=== PATIENT | male | born 1940 | race Caucasian/White ===

== ENCOUNTER 2017-12-11 16:06 | Emergency (ER) | payer SELFPAY ==
[~2017-12-11] VITALS: Ht 170.2 cm; Wt 65.0 kg
[~2017-12-11 16:06] MED LIST: CEPH-569 PO
[2017-12-11 17:02] LABS: BASOPHILS % 0.2 % (0.0-2.0); EOSINOPHILS % 0.8 % (0.0-5.0); HEMATOCRIT. 36.1 % (42.0-52.0); HEMOGLOBIN. 12.4 g/dL (14.0-18.0); LYMPHOCYTES % 13.1 % (20.0-50.0); MEAN CORPUSCULAR VOLUME 99.1 fL (80.0-94.0); MEAN PLATELET VOLUME 8.8 fl (7.4-10.4); MONOCYTES % 8.7 % (2.0-8.0); NEUTROPHILS % 77.2 % (40.0-76.0); PLATELET 176 x1000/uL (130-400); RED BLOOD CELL COUNT 3.64 mill/uL (4.7-6.1); RED CELL DISTRIBUTION WIDTH 15.7 % (11.6-14.6)
[2017-12-11 17:05] LABS: CHLORIDE 107 mEq/L (98-107)
[2017-12-11 17:06] LABS: INR 1.2; PROTHROMBIN TIME 12.2 sec (9.4-11.6)
[2017-12-11] MEDS ORDERED: CEPHALEXIN 500MG CAPSULE PO ONE (21:30)
[2017-12-11 21:55] VITALS: BP 140/73
[2017-12-12 12:31] LABS: KETONES URINE 2+ (NEGATIVE); LEUKOCYTE ESTERASE URINE 3+ (NEGATIVE); NITRITE URINE POSITIVE (NEGATIVE); OCCULT BLOOD URINE 3+ (NEGATIVE); PH URINE 7.5 (4.5-8.0); PROTEIN URINE 4+ (NEGATIVE); SPECIFIC GRAVITY URINE 1.024 (1.005-1.030)
[2017-12-12 12:35] LABS: CLARITY URINE CLOUDY (CLEAR); COLOR URINE BLOODY (YELLOW)
== END 2017-12-11 22:32 | disposition home or self-care (01) ==
LOC: ER 16:42
DX: N30.01 Acute cystitis with hematuria (principal); K21.9 Gastro-esophageal reflux disease without esophagitis; E11.9 Type 2 diabetes mellitus without complications; I10 Essential (primary) hypertension; N40.0 Benign prostatic hyperplasia without lower urinary tract symptoms; N21.0 Calculus in bladder
CPT/HCPCS: 36415; 74176; 80053; 85025; 85610; 87077; 99285; A4315

== ENCOUNTER 2017-12-12 10:47 | Emergency (ER) | payer OTHER ==
[~2017-12-12] VITALS: Ht 172.7 cm; Wt 85.0 kg
[2017-12-12 14:46] VITALS: BP 150/66
== END 2017-12-12 14:51 | disposition home or self-care (01) ==
LOC: ER 10:47
DX: R31.9 Hematuria, unspecified (principal); I10 Essential (primary) hypertension; K21.9 Gastro-esophageal reflux disease without esophagitis; E11.9 Type 2 diabetes mellitus without complications; Z86.73 Personal history of transient ischemic attack (TIA), and cerebral infarction without residual deficits
CPT/HCPCS: 99283

== ENCOUNTER 2018-05-09 10:42 | Inpatient (IN) | payer MEDICARE, MEDICAID, OTHER ==
[~2018-05-09] VITALS: Ht 177.8 cm; Wt 75.3 kg
[2018-05-09] MEDS ORDERED: SODIUM CHLORIDE 0.9% 1,000 ML IV ONE (11:15)
[2018-05-09 12:12] LABS: HEMATOCRIT. 39.5 % (42.0-52.0); HEMOGLOBIN. 13.5 g/dL (14.0-18.0); MEAN CORPUSCULAR HEMOGLOBIN 34.3 pg (28.0-32.0); MEAN CORPUSCULAR VOLUME 100.3 fL (80.0-94.0); MEAN PLATELET VOLUME 8.5 fl (7.4-10.4); PLATELET 153 x1000/uL (130-400); RED BLOOD CELL COUNT 3.94 mill/uL (4.7-6.1); RED CELL DISTRIBUTION WIDTH 13.7 % (11.6-14.6)
[2018-05-09 12:18] LABS: CHLORIDE 107 mEq/L (98-107)
[2018-05-09 13:03] LABS: CLARITY URINE CLOUDY (CLEAR); COLOR URINE YELLOW (YELLOW); KETONES URINE NEGATIVE (NEGATIVE); LEUKOCYTE ESTERASE URINE 1+ (NEGATIVE); NITRITE URINE NEGATIVE (NEGATIVE); OCCULT BLOOD URINE 1+ (NEGATIVE); PROTEIN URINE 1+ (NEGATIVE); SPECIFIC GRAVITY URINE 1.019 (1.005-1.030); UROBILINOGEN URINE 0.2 E.U./dL (0.2-1.0)
[2018-05-09 13:06] LABS: ATYPICAL LYMPHOCYTES 1; PLATELET ESTIMATE NORMAL
[2018-05-09] MEDS ORDERED: CEFTRIAXONE 1 G PREMIX 50 ML IV ONE (14:15)
[2018-05-09] MEDS ORDERED: DOCUSATE SODIUM 100MG CAPSULE PO PRN (16:00)
[2018-05-09] MEDS ORDERED: MAGNESIUM/ALUMINUM HYDROXIDE/SIMETHICONE 30ML UDC PO PRN (16:00)
[2018-05-09] MEDS ORDERED: ACETAMINOPHEN 325MG TABLET PO PRN (16:00)
[2018-05-09] MEDS ORDERED: LORAZEPAM 2MG/ML CPJ IV PRN (16:00)
[2018-05-09] MEDS ORDERED: HYDROCODONE/ACETAMINOPHEN 5/325MG TABLET PO PRN (16:00)
[2018-05-09] MEDS ORDERED: CLONIDINE 0.1MG TABLET PO PRN (16:00)
[2018-05-09] MEDS ORDERED: GUAIFENESIN 200MG/10ML SUGAR FREE UDC PO PRN (16:00)
[2018-05-09] MEDS ORDERED: ONDANSETRON HCL 4MG/2ML INJ IV PRN (16:00)
[2018-05-09 16:50] VITALS: BP 189/89
[2018-05-09] MEDS ORDERED: ENOXAPARIN 40MG/0.4ML SYR SUBCUT SCH (17:30)
[2018-05-09] MEDS ORDERED: LEVOFLOXACIN 500MG PREMIX 100 ML IV SCH (18:30)
[2018-05-09 19:34] VITALS: BP 170/90
[2018-05-09 20:00] VITALS: BP 170/90
[2018-05-09] MEDS ORDERED: DEXTROSE 50% WATER 50ML SYRINGE IV PRN (22:00)
[2018-05-09] MEDS: SODIUM CHLORIDE 0.45% 1,000 ML IV SCH (22:06)
[2018-05-09 23:41] VITALS: BP 154/79
[2018-05-10] MEDS ORDERED: FLUO-123 PO (03:25)
[2018-05-10] MEDS ORDERED: DOCU-138 PO (03:31)
[2018-05-10] MEDS ORDERED: CRAN450T10 PO (03:31)
[2018-05-10] MEDS ORDERED: CLON0.1T PO (03:31)
[2018-05-10] MEDS ORDERED: INSLIS SUBCUT (03:31)
[2018-05-10] MEDS ORDERED: ASCO-339 PO (03:31)
[2018-05-10] MEDS ORDERED: ACET-2178 PO (03:31)
[2018-05-10] MEDS ORDERED: MULT-230 PO (03:31)
[2018-05-10] MEDS ORDERED: IPRA3AMP9 NEB (03:35)
[2018-05-10] MEDS ORDERED: ONDA4TAB11 PO (03:35)
[2018-05-10] MEDS ORDERED: HYDR-4001 PO (03:35)
[2018-05-10 04:11] VITALS: BP 139/79
[2018-05-10] MEDS: SODIUM CHLORIDE 0.45% 1,000 ML IV SCH ×2 (05:45→17:45)
[2018-05-10] MEDS: BLOOD SUGAR DIAGNOSTIC STRIP TEST SCH ×4 (06:42→20:22)
[2018-05-10] MEDS: INSULIN LISPRO 100 UNITS/ML SUBCUT SCH ×4 (07:50→20:23)
[2018-05-10 08:00] VITALS: BP 139/74
[2018-05-10] MEDS: AMLODIPINE 10MG TABLET PO SCH (09:53)
[2018-05-10 11:26] LABS: BASOPHILS % 0.5 % (0.0-2.0); HEMATOCRIT. 38.1 % (42.0-52.0); HEMOGLOBIN. 13.4 g/dL (14.0-18.0); LYMPHOCYTES % 21.5 % (20.0-50.0); MEAN CORPUSCULAR HEMOGLOBIN 34.9 pg (28.0-32.0); MEAN CORPUSCULAR VOLUME 99.1 fL (80.0-94.0); MEAN PLATELET VOLUME 8.2 fl (7.4-10.4); MONOCYTES % 7.9 % (2.0-8.0); NEUTROPHILS % 66.1 % (40.0-76.0); PLATELET 157 x1000/uL (130-400); RED BLOOD CELL COUNT 3.84 mill/uL (4.7-6.1); RED CELL DISTRIBUTION WIDTH 13.2 % (11.6-14.6)
[2018-05-10] MEDS: APIXABAN 5 MG TABLET PO SCH ×2 (11:37→17:45)
[2018-05-10 12:00] VITALS: BP 124/76
[2018-05-10 12:13] LABS: CHLORIDE 107 mEq/L (98-107)
[2018-05-10 16:00] VITALS: BP 155/78
[2018-05-10 19:33] VITALS: BP 142/83
[2018-05-10] MEDS: LEVOFLOXACIN 500MG PREMIX 100 ML IV SCH (20:21)
[2018-05-11] VITALS (8 sets, daily range): BP systolic 115–164; BP diastolic 62–69
[2018-05-11] MEDS: BLOOD SUGAR DIAGNOSTIC STRIP TEST SCH ×4 (06:38→20:15)
[2018-05-11] MEDS: INSULIN LISPRO 100 UNITS/ML SUBCUT SCH ×4 (07:22→20:15)
[2018-05-11] MEDS: AMLODIPINE 10MG TABLET PO SCH (08:52)
[2018-05-11] MEDS: APIXABAN 5 MG TABLET PO SCH ×2 (08:52→17:42)
[2018-05-11] MEDS: SODIUM CHLORIDE 0.45% 1,000 ML IV SCH ×2 (08:57→20:16)
[2018-05-11] MEDS: LEVOFLOXACIN 500MG PREMIX 100 ML IV SCH (20:14)
[2018-05-12] VITALS: BP 135/74
[2018-05-12 04:00] VITALS: BP 130/76
[2018-05-12] MEDS: BLOOD SUGAR DIAGNOSTIC STRIP TEST SCH ×2 (07:16→12:22)
[2018-05-12] MEDS: INSULIN LISPRO 100 UNITS/ML SUBCUT SCH ×2 (07:50→12:22)
[2018-05-12] MEDS: APIXABAN 5 MG TABLET PO SCH (09:08)
[2018-05-12] MEDS: AMLODIPINE 10MG TABLET PO SCH (09:08)
[2018-05-12] MEDS: SODIUM CHLORIDE 0.45% 1,000 ML IV SCH (10:39)
[2018-05-12 12:00] VITALS: BP 141/75
[2018-05-12 16:00] VITALS: BP 157/83
[2018-05-12 20:00] VITALS: BP 145/76
[2018-05-12] MEDS ORDERED: LEVOFLOXACIN 500MG TABLET PO SCH (20:00)
== END 2018-05-12 19:48 | DRG 690 ==
LOC: ER 10:42 → 6WST 12:53 → EDBEDREQ 12:58 → EDBEDREQTM 12:58 → ENRESERV 15:51 → SUPCPDRO 15:56 → CANBEDREQ 16:40
PROVIDERS: ADMIT Hospitalist; ATTEND Hospitalist
DX: N39.0 Urinary tract infection, site not specified (principal); E11.9 Type 2 diabetes mellitus without complications; F03.90 Unspecified dementia, unspecified severity, without behavioral disturbance, psychotic disturbance, mood disturbance, and anxiety; J44.9 Chronic obstructive pulmonary disease, unspecified; R62.7 Adult failure to thrive; I10 Essential (primary) hypertension; Z82.49 Family history of ischemic heart disease and other diseases of the circulatory system; Z86.718 Personal history of other venous thrombosis and embolism; Z86.73 Personal history of transient ischemic attack (TIA), and cerebral infarction without residual deficits; Z79.899 Other long term (current) drug therapy
CPT/HCPCS: 36415; 71045; 82962; 83605; 83735; 84443; 84484; 93005; 93970; 96361; 96365; 99285; C1893; J0696; J1650; J1956; J7030

== ENCOUNTER → 2018-07-11 | Outpatient (CLI) | payer MEDICARE, OTHER, MEDICAID ==
[~2018-07-11] MED LIST changes: +ACET-2178 PO; +ASCO-339 PO; +CLON0.1T PO; +CRAN450T10 PO; +DOCU-138 PO; +FLUO-123 PO; +HYDR-4001 PO; +INSLIS SUBCUT; +IOHEXOL-300 100 ML BOTTLE ONE; +IPRA3AMP9 NEB; +MULT-230 PO; +ONDA4TAB11 PO
== END | disposition home or self-care (01) ==
LOC: CT 08:47
PROVIDERS: ATTEND Urology
DX: N32.89 Other specified disorders of bladder (principal); N21.0 Calculus in bladder; N40.1 Benign prostatic hyperplasia with lower urinary tract symptoms; M41.86 Other forms of scoliosis, lumbar region; M48.56XD Collapsed vertebra, not elsewhere classified, lumbar region, subsequent encounter for fracture with routine healing; I71.4 Abdominal aortic aneurysm, without rupture; K80.20 Calculus of gallbladder without cholecystitis without obstruction; I10 Essential (primary) hypertension; R26.2 Difficulty in walking, not elsewhere classified; R13.12 Dysphagia, oropharyngeal phase; R41.81 Age-related cognitive decline; R41.840 Attention and concentration deficit; R27.9 Unspecified lack of coordination; I67.9 Cerebrovascular disease, unspecified; Z86.718 Personal history of other venous thrombosis and embolism
CPT/HCPCS: 74178; Q9967

== ENCOUNTER 2018-08-16 13:22 | Inpatient (IN) | payer MEDICARE, MEDICAID, OTHER ==
[~2018-08-16] VITALS: Ht 177.8 cm; Wt 122.9 kg
[~2018-08-16 13:22] MED LIST changes: -IOHEXOL-300 100 ML BOTTLE ONE
[2018-08-16] MEDS ORDERED: MORPHINE SULFATE 4 MG/ML CPJ (NOT FOR IM USE) IV STA (13:58)
[2018-08-16] MEDS ORDERED: SODIUM CHLORIDE 0.9% 1,000 ML IV ONE (13:58)
[2018-08-16] MEDS ORDERED: ONDANSETRON HCL 4MG/2ML INJ IV STA (13:58)
[2018-08-16] MEDS ORDERED: LEVOFLOXACIN 750MG PREMIX 150 ML IV ONE (14:00)
[2018-08-16 14:41] LABS: CLARITY URINE CLEAR (CLEAR); COLOR URINE YELLOW (YELLOW); KETONES URINE NEGATIVE (NEGATIVE); LEUKOCYTE ESTERASE URINE 1+ (NEGATIVE); NITRITE URINE NEGATIVE (NEGATIVE); OCCULT BLOOD URINE 2+ (NEGATIVE); PROTEIN URINE NEGATIVE (NEGATIVE); SPECIFIC GRAVITY URINE 1.001 (1.005-1.030); UROBILINOGEN URINE 0.2 E.U./dL (0.2-1.0)
[2018-08-16 15:39] LABS: BASOPHILS % 0.2 % (0.0-2.0); HEMOGLOBIN. 14.4 g/dL (14.0-18.0); LYMPHOCYTES % 11.3 % (20.0-50.0); MEAN CORPUSCULAR HEMOGLOBIN 34.1 pg (28.0-32.0); MEAN CORPUSCULAR VOLUME 99.2 fL (80.0-94.0); MEAN PLATELET VOLUME 7.7 fl (7.4-10.4); MONOCYTES % 5.7 % (2.0-8.0); NEUTROPHILS % 80.8 % (40.0-76.0); PLATELET 233 x1000/uL (130-400); RED BLOOD CELL COUNT 4.24 mill/uL (4.7-6.1); RED CELL DISTRIBUTION WIDTH 13.7 % (11.6-14.6)
[2018-08-16 15:40] LABS: CHLORIDE 103 mEq/L (98-107)
[2018-08-16] MEDS ORDERED: DOCUSATE SODIUM 100MG CAPSULE PO PRN (17:45)
[2018-08-16] MEDS ORDERED: HYDROCODONE/ACETAMINOPHEN 5/325MG TABLET PO PRN (17:45)
[2018-08-16] MEDS ORDERED: GUAIFENESIN 200MG/10ML SUGAR FREE UDC PO PRN (20:00)
[2018-08-16] MEDS ORDERED: IPRATROPIUM/ALBUTEROL 0.5-3(2.5)MG/3ML NEB INH PRN (20:00)
[2018-08-16] MEDS ORDERED: ACETAMINOPHEN 325MG TABLET PO PRN (20:00)
[2018-08-16] MEDS ORDERED: ONDANSETRON HCL 4MG/2ML INJ IV PRN (20:00)
[2018-08-16] MEDS ORDERED: LORAZEPAM 2MG/ML CPJ IV PRN (20:00)
[2018-08-16 21:02] VITALS: BP 122/61
[2018-08-16 22:00] VITALS: BP 122/61
[2018-08-16] MEDS ORDERED: APIX5TAB PO (22:15)
[2018-08-16] MEDS ORDERED: AMLO10TA4 PO (22:16)
[2018-08-16] MEDS: SODIUM CHLORIDE 0.45% 1,000 ML IV SCH (23:47)
[2018-08-17] VITALS: BP 117/61
[2018-08-17 04:00] VITALS: BP 126/58
[2018-08-17] MEDS ORDERED: DEXTROSE 50% WATER 50ML SYRINGE IV PRN (06:30)
[2018-08-17 07:12] LABS: CHLORIDE 106 mEq/L (98-107)
[2018-08-17] MEDS: INSULIN LISPRO 100 UNITS/ML SUBCUT SCH ×4 (07:15→20:50)
[2018-08-17 07:23] LABS: BASOPHILS % 0.3 % (0.0-2.0); EOSINOPHILS % 3.7 % (0.0-5.0); HEMATOCRIT. 36.6 % (42.0-52.0); HEMOGLOBIN. 12.6 g/dL (14.0-18.0); LYMPHOCYTES % 14.5 % (20.0-50.0); MEAN CORPUSCULAR HEMOGLOBIN 34.2 pg (28.0-32.0); MEAN CORPUSCULAR VOLUME 99.5 fL (80.0-94.0); MEAN PLATELET VOLUME 7.7 fl (7.4-10.4); MONOCYTES % 10.7 % (2.0-8.0); NEUTROPHILS % 70.8 % (40.0-76.0); PLATELET 204 x1000/uL (130-400); RED BLOOD CELL COUNT 3.68 mill/uL (4.7-6.1); RED CELL DISTRIBUTION WIDTH 13.8 % (11.6-14.6)
[2018-08-17 07:30] LABS: LDL CHOLESTEROL 132 mg/dL (5-100)
[2018-08-17 07:31] LABS: HDL CHOLESTEROL 31 mg/dL (40-59)
[2018-08-17] MEDS: BLOOD SUGAR DIAGNOSTIC STRIP TEST SCH ×4 (07:38→20:50)
[2018-08-17 12:00] VITALS: BP 147/62
[2018-08-17] MEDS: LEVOFLOXACIN 500MG PREMIX 100 ML IV SCH (15:49)
[2018-08-17 16:00] VITALS: BP 165/63
[2018-08-17] MEDS: SODIUM CHLORIDE 0.45% 1,000 ML IV SCH (17:09)
[2018-08-17 20:00] VITALS: BP 152/65
[2018-08-18] VITALS (7 sets, daily range): BP systolic 134–176; BP diastolic 66–82
[2018-08-18] MEDS: SODIUM CHLORIDE 0.45% 1,000 ML IV SCH ×2 (04:55→15:24)
[2018-08-18] MEDS: INSULIN LISPRO 100 UNITS/ML SUBCUT SCH ×4 (06:23→20:30)
[2018-08-18] MEDS: BLOOD SUGAR DIAGNOSTIC STRIP TEST SCH ×4 (06:23→20:30)
[2018-08-18 07:36] LABS: BASOPHILS % 0.4 % (0.0-2.0); EOSINOPHILS % 3.4 % (0.0-5.0); LYMPHOCYTES % 17.6 % (20.0-50.0); MEAN CORPUSCULAR HEMOGLOBIN 33.8 pg (28.0-32.0); MEAN CORPUSCULAR VOLUME 99.1 fL (80.0-94.0); MEAN PLATELET VOLUME 7.7 fl (7.4-10.4); MONOCYTES % 12.8 % (2.0-8.0); NEUTROPHILS % 65.8 % (40.0-76.0); PLATELET 187 x1000/uL (130-400); RED BLOOD CELL COUNT 3.83 mill/uL (4.7-6.1); RED CELL DISTRIBUTION WIDTH 13.6 % (11.6-14.6)
[2018-08-18 08:01] LABS: CHLORIDE 107 mEq/L (98-107)
[2018-08-18] MEDS: LEVOFLOXACIN 500MG PREMIX 100 ML IV SCH (15:24)
[2018-08-19] VITALS: BP 160/79
[2018-08-19 04:00] VITALS: BP 143/69
[2018-08-19] MEDS: SODIUM CHLORIDE 0.45% 1,000 ML IV SCH (05:53)
[2018-08-19] MEDS: BLOOD SUGAR DIAGNOSTIC STRIP TEST SCH ×4 (06:02→21:00)
[2018-08-19] MEDS: INSULIN LISPRO 100 UNITS/ML SUBCUT SCH ×4 (06:15→21:00)
[2018-08-19 07:58] LABS: BASOPHILS % 0.3 % (0.0-2.0); EOSINOPHILS % 2.9 % (0.0-5.0); HEMATOCRIT. 38.4 % (42.0-52.0); LYMPHOCYTES % 19.4 % (20.0-50.0); MEAN CORPUSCULAR HEMOGLOBIN 33.7 pg (28.0-32.0); MEAN CORPUSCULAR VOLUME 99.3 fL (80.0-94.0); MEAN PLATELET VOLUME 7.8 fl (7.4-10.4); MONOCYTES % 11.2 % (2.0-8.0); NEUTROPHILS % 66.2 % (40.0-76.0); PLATELET 194 x1000/uL (130-400); RED BLOOD CELL COUNT 3.86 mill/uL (4.7-6.1); RED CELL DISTRIBUTION WIDTH 13.7 % (11.6-14.6)
[2018-08-19 08:00] VITALS: BP 120/77
[2018-08-19 09:00] LABS: CHLORIDE 108 mEq/L (98-107)
[2018-08-19 12:00] VITALS: BP 146/71
[2018-08-19] MEDS ORDERED: GENTAMICIN SULFATE 160 MG in SODIUM CHLORIDE 0.9% 100 ML IV SCH (14:00)
[2018-08-19 16:00] VITALS: BP 142/80
[2018-08-19 20:00] VITALS: BP 141/81
[2018-08-20] VITALS: BP 140/66
[2018-08-20 04:00] VITALS: BP_SYST 132; BP_SYST 143; BP_DIAS 62; BP_DIAS 86
[2018-08-20] MEDS: INSULIN LISPRO 100 UNITS/ML SUBCUT SCH ×2 (06:12→11:59)
[2018-08-20] MEDS: BLOOD SUGAR DIAGNOSTIC STRIP TEST SCH ×2 (06:12→11:59)
[2018-08-20 07:07] LABS: CHLORIDE 107 mEq/L (98-107)
[2018-08-20 07:08] LABS: BASOPHILS % 0.3 % (0.0-2.0); EOSINOPHILS % 2.9 % (0.0-5.0); HEMATOCRIT. 37.5 % (42.0-52.0); LYMPHOCYTES % 18.9 % (20.0-50.0); MEAN CORPUSCULAR HEMOGLOBIN 34.3 pg (28.0-32.0); MEAN CORPUSCULAR VOLUME 98.5 fL (80.0-94.0); MEAN PLATELET VOLUME 7.8 fl (7.4-10.4); NEUTROPHILS % 69.9 % (40.0-76.0); PLATELET 208 x1000/uL (130-400); RED BLOOD CELL COUNT 3.81 mill/uL (4.7-6.1); RED CELL DISTRIBUTION WIDTH 13.8 % (11.6-14.6)
[2018-08-20 08:00] VITALS: BP 150/74
[2018-08-20] MEDS ORDERED: GENTAMICIN 80MG PREMIX 100 ML IV SCH (10:00)
[2018-08-20 12:00] VITALS: BP 160/78
[2018-08-20] MEDS ORDERED: GENTAMICIN 120MG PREMIX 100 ML IV SCH (14:00)
[2018-08-20 16:00] VITALS: BP 146/93
[2018-08-20] MEDS ORDERED: ATORVASTATIN CALCIUM 20MG TABLET PO SCH (21:00)
== END 2018-08-20 18:10 | DRG 690 ==
LOC: ER 13:22 → 5WST 15:34 → EDBEDREQ 15:37 → ENRESERV 18:07 → EDBEDREQ 20:39
PROVIDERS: ADMIT Hospitalist; ATTEND Hospitalist
PROC: 02HV33Z Insertion of Infusion Device into Superior Vena Cava, Percutaneous Approach (ICD-10-PCS; principal; 2018-08-20)
PROC: B518ZZA Fluoroscopy of Superior Vena Cava, Guidance (ICD-10-PCS; 2018-08-20)
PROC: B548ZZA Ultrasonography of Superior Vena Cava, Guidance (ICD-10-PCS; 2018-08-20)
DX: N30.91 Cystitis, unspecified with hematuria (principal); J44.9 Chronic obstructive pulmonary disease, unspecified; I10 Essential (primary) hypertension; N20.0 Calculus of kidney; D64.9 Anemia, unspecified; F03.90 Unspecified dementia, unspecified severity, without behavioral disturbance, psychotic disturbance, mood disturbance, and anxiety; Z16.12 Extended spectrum beta lactamase (ESBL) resistance; B96.20 Unspecified Escherichia coli [E. coli] as the cause of diseases classified elsewhere; E11.9 Type 2 diabetes mellitus without complications; Z87.440 Personal history of urinary (tract) infections; Z87.442 Personal history of urinary calculi; Z86.718 Personal history of other venous thrombosis and embolism
CPT/HCPCS: 36415; 36569; 71045; 74176; 76937; 77001; 80061; 82962; 83605; 87077; 87186; 93005; 93970; 96365; 96366; 96375; 99285; C1725; J1580; J1956; J2270; J2405; J7030; J7050

== ENCOUNTER 2018-10-03 11:43 | Inpatient (IN) | payer MEDICARE, MEDICAID, OTHER ==
[~2018-10-03] VITALS: Ht 177.8 cm; Wt 79.8 kg
[~2018-10-03 11:43] MED LIST changes: +AMLO10TA4 PO; +APIX5TAB PO; -ASCO-339 PO; -CEPH-569 PO; -CRAN450T10 PO; -DOCU-138 PO; -FLUO-123 PO; -HYDR-4001 PO; -INSLIS SUBCUT; -IPRA3AMP9 NEB; -MULT-230 PO; -ONDA4TAB11 PO
[2018-10-03] MEDS ORDERED: MORPHINE SULFATE 4 MG/ML CPJ (NOT FOR IM USE) IV STA (12:24)
[2018-10-03] MEDS ORDERED: ONDANSETRON HCL 4MG/2ML INJ IV STA (12:24)
[2018-10-03] MEDS ORDERED: SODIUM CHLORIDE 0.9% 1,000 ML IV ONE ×2 (12:24→15:01)
[2018-10-03 12:58] LABS: BASOPHILS % 0.2 % (0.0-2.0); EOSINOPHILS % 0.7 % (0.0-5.0); HEMATOCRIT. 38.3 % (42.0-52.0); HEMOGLOBIN. 13.1 g/dL (14.0-18.0); MEAN CORPUSCULAR VOLUME 99.5 fL (80.0-94.0); MEAN PLATELET VOLUME 7.9 fl (7.4-10.4); MONOCYTES % 7.9 % (2.0-8.0); NEUTROPHILS % 83.2 % (40.0-76.0); PLATELET 194 x1000/uL (130-400); RED BLOOD CELL COUNT 3.85 mill/uL (4.7-6.1); RED CELL DISTRIBUTION WIDTH 14.7 % (11.6-14.6)
[2018-10-03 13:05] LABS: CHLORIDE 104 mEq/L (98-107)
[2018-10-03 13:07] LABS: INR 1.1; PARTIAL THROMBOPLASTIN TIME 37.2 sec (23.4-31.0); PROTHROMBIN TIME 11.1 sec (9.1-11.1)
[2018-10-03] MEDS ORDERED: CEFTRIAXONE 1 G PREMIX 50 ML IV ONE (14:30)
[2018-10-03 14:39] LABS: KETONES URINE NEGATIVE (NEGATIVE); LEUKOCYTE ESTERASE URINE NEGATIVE (NEGATIVE); NITRITE URINE NEGATIVE (NEGATIVE); OCCULT BLOOD URINE 3+ (NEGATIVE); PROTEIN URINE NEGATIVE (NEGATIVE); SPECIFIC GRAVITY URINE 1.012 (1.005-1.030); UROBILINOGEN URINE 0.2 E.U./dL (0.2-1.0)
[2018-10-03 14:44] LABS: CLARITY URINE CLOUDY (CLEAR); COLOR URINE BLOODY (YELLOW)
[2018-10-03] MEDS ORDERED: ONDANSETRON HCL 4MG/2ML INJ IV PRN (15:30)
[2018-10-03] MEDS ORDERED: CLONIDINE 0.1MG TABLET PO PRN (15:30)
[2018-10-03] MEDS ORDERED: DOCUSATE SODIUM 100MG CAPSULE PO PRN (15:30)
[2018-10-03] MEDS ORDERED: CEFTRIAXONE 1 G PREMIX 50 ML IV SCH (15:30)
[2018-10-03] MEDS ORDERED: ACETAMINOPHEN 325MG TABLET PO PRN (15:30)
[2018-10-03 23:10] VITALS: BP 111/56
[2018-10-03 23:46] VITALS: BP 108/51
[2018-10-04] MEDS: SODIUM CHLORIDE 0.45% 1,000 ML IV SCH ×2 (03:00→22:17)
[2018-10-04 04:00] VITALS: BP 121/72
[2018-10-04] MEDS ORDERED: DEXTROSE 50% WATER 50ML SYRINGE IV PRN (05:15)
[2018-10-04] MEDS: BLOOD SUGAR DIAGNOSTIC STRIP TEST SCH ×4 (06:28→21:00)
[2018-10-04 07:36] LABS: BASOPHILS % 0.3 % (0.0-2.0); EOSINOPHILS % 2.8 % (0.0-5.0); HEMATOCRIT. 32.8 % (42.0-52.0); HEMOGLOBIN. 11.1 g/dL (14.0-18.0); LYMPHOCYTES % 15.8 % (20.0-50.0); MEAN CORPUSCULAR HEMOGLOBIN 33.7 pg (28.0-32.0); MEAN CORPUSCULAR VOLUME 99.3 fL (80.0-94.0); MONOCYTES % 8.3 % (2.0-8.0); NEUTROPHILS % 72.8 % (40.0-76.0); PLATELET 160 x1000/uL (130-400); RED CELL DISTRIBUTION WIDTH 14.7 % (11.6-14.6)
[2018-10-04 07:43] LABS: CHLORIDE 111 mEq/L (98-107)
[2018-10-04] MEDS: INSULIN LISPRO 100 UNITS/ML SUBCUT SCH ×3 (07:50→17:50)
[2018-10-04 08:00] VITALS: BP 105/54
[2018-10-04] MEDS: AMLODIPINE 10MG TABLET PO SCH (09:00)
[2018-10-04 12:00] VITALS: BP 134/52
[2018-10-04] MEDS ORDERED: CEFTRIAXONE 1 G PREMIX 50 ML IV SCH (15:00)
[2018-10-04] MEDS: CEFTRIAXONE 1,000 MG in DEXTROSE 5% WATER 50 ML IV SCH (15:48)
[2018-10-04 16:00] VITALS: BP 123/60
[2018-10-04 20:00] VITALS: BP 119/53
[2018-10-05] VITALS: BP 134/50
[2018-10-05 04:00] VITALS: BP 131/64
[2018-10-05] MEDS: BLOOD SUGAR DIAGNOSTIC STRIP TEST SCH ×4 (07:20→20:58)
[2018-10-05 07:28] LABS: BASOPHILS % 0.4 % (0.0-2.0); HEMATOCRIT. 32.6 % (42.0-52.0); HEMOGLOBIN. 11.1 g/dL (14.0-18.0); LYMPHOCYTES % 17.6 % (20.0-50.0); MEAN CORPUSCULAR HEMOGLOBIN 33.8 pg (28.0-32.0); MEAN CORPUSCULAR VOLUME 99.1 fL (80.0-94.0); MEAN PLATELET VOLUME 8.1 fl (7.4-10.4); MONOCYTES % 7.8 % (2.0-8.0); NEUTROPHILS % 71.2 % (40.0-76.0); PLATELET 167 x1000/uL (130-400); RED BLOOD CELL COUNT 3.29 mill/uL (4.7-6.1)
[2018-10-05 07:43] LABS: CHLORIDE 111 mEq/L (98-107)
[2018-10-05] MEDS: INSULIN LISPRO 100 UNITS/ML SUBCUT SCH ×4 (07:49→21:00)
[2018-10-05 08:00] VITALS: BP 107/71
[2018-10-05] MEDS: AMLODIPINE 10MG TABLET PO SCH (09:00)
[2018-10-05 12:00] VITALS: BP 115/55
[2018-10-05] MEDS: APIXABAN 5 MG TABLET PO SCH ×2 (12:44→20:58)
[2018-10-05] MEDS: SODIUM CHLORIDE 0.45% 1,000 ML IV SCH (14:56)
[2018-10-05] MEDS: CEFTRIAXONE 1,000 MG in DEXTROSE 5% WATER 50 ML IV SCH (14:57)
[2018-10-05 16:00] VITALS: BP 121/61
[2018-10-05 20:00] VITALS: BP 153/82
[2018-10-06] VITALS: BP 161/90
[2018-10-06 04:00] VITALS: BP 134/80
[2018-10-06] MEDS: BLOOD SUGAR DIAGNOSTIC STRIP TEST SCH (06:20)
[2018-10-06 06:58] LABS: BASOPHILS % 0.3 % (0.0-2.0); EOSINOPHILS % 3.9 % (0.0-5.0); HEMATOCRIT. 36.9 % (42.0-52.0); HEMOGLOBIN. 12.5 g/dL (14.0-18.0); LYMPHOCYTES % 17.7 % (20.0-50.0); MEAN CORPUSCULAR HEMOGLOBIN 33.6 pg (28.0-32.0); MEAN PLATELET VOLUME 7.9 fl (7.4-10.4); MONOCYTES % 8.9 % (2.0-8.0); NEUTROPHILS % 69.2 % (40.0-76.0); PLATELET 192 x1000/uL (130-400); RED BLOOD CELL COUNT 3.73 mill/uL (4.7-6.1); RED CELL DISTRIBUTION WIDTH 14.5 % (11.6-14.6)
[2018-10-06] MEDS: INSULIN LISPRO 100 UNITS/ML SUBCUT SCH (07:50)
[2018-10-06 08:00] VITALS: BP 113/70
[2018-10-06 08:48] LABS: CHLORIDE 108 mEq/L (98-107)
[2018-10-06] MEDS: APIXABAN 5 MG TABLET PO SCH (08:55)
[2018-10-06] MEDS: AMLODIPINE 10MG TABLET PO SCH (08:56)
[2018-10-06 12:00] VITALS: BP 129/67
[2018-10-06 12:35] VITALS: BP 129/67
[2018-10-06] MEDS ORDERED: NITROFURANTOIN 100MG M/M CAPSULE PO SCH (21:00)
== END 2018-10-06 15:08 | DRG 690 ==
LOC: ER 11:49 → ENRESERV 22:02 → 6EST 10-04 00:03
PROVIDERS: ADMIT Hospitalist; ATTEND Hospitalist
DX: N39.0 Urinary tract infection, site not specified (principal); N17.9 Acute kidney failure, unspecified; I82.509 Chronic embolism and thrombosis of unspecified deep veins of unspecified lower extremity; R31.9 Hematuria, unspecified; J44.9 Chronic obstructive pulmonary disease, unspecified; E11.9 Type 2 diabetes mellitus without complications; B96.20 Unspecified Escherichia coli [E. coli] as the cause of diseases classified elsewhere; B96.1 Klebsiella pneumoniae [K. pneumoniae] as the cause of diseases classified elsewhere; R33.9 Retention of urine, unspecified; I10 Essential (primary) hypertension; Z86.73 Personal history of transient ischemic attack (TIA), and cerebral infarction without residual deficits; Z87.440 Personal history of urinary (tract) infections; Z87.442 Personal history of urinary calculi
CPT/HCPCS: 36415; 71045; 82962; 83735; 86850; 86900; 87077; 87186; 93005; 93970; 96365; 96375; 99285; J0696; J2270; J2405; J7030; J7060; A4315

== ENCOUNTER 2019-01-03 12:17 | Emergency (ER) | payer MEDICARE, OTHER ==
[~2019-01-03] VITALS: Ht 167.6 cm; Wt 80.0 kg
[2019-01-03 12:48] LABS: BASOPHILS % 0.5 % (0.0-2.0); EOSINOPHILS % 4.4 % (0.0-5.0); HEMATOCRIT. 37.9 % (42.0-52.0); HEMOGLOBIN. 13.1 g/dL (14.0-18.0); LYMPHOCYTES % 21.6 % (20.0-50.0); MEAN CORPUSCULAR HEMOGLOBIN 34.7 pg (28.0-32.0); MEAN CORPUSCULAR VOLUME 100.4 fL (80.0-94.0); MEAN PLATELET VOLUME 7.8 fl (7.4-10.4); MONOCYTES % 11.3 % (2.0-8.0); NEUTROPHILS % 62.2 % (40.0-76.0); PLATELET 168 x1000/uL (130-400); RED BLOOD CELL COUNT 3.78 mill/uL (4.7-6.1); RED CELL DISTRIBUTION WIDTH 14.9 % (11.6-14.6)
[2019-01-03 12:53] LABS: CHLORIDE 108 mEq/L (98-107)
[2019-01-03 12:57] LABS: INR 1.1; PARTIAL THROMBOPLASTIN TIME 35.2 sec (23.4-31.0); PROTHROMBIN TIME 11.5 sec (9.6-11.0)
[2019-01-03 18:53] VITALS: BP 151/71
== END 2019-01-03 19:02 | disposition home or self-care (01) ==
LOC: ER 12:17 → CANBEDREQ 19:24
DX: R60.9 Edema, unspecified (principal); I10 Essential (primary) hypertension; J44.9 Chronic obstructive pulmonary disease, unspecified; E11.9 Type 2 diabetes mellitus without complications; Z86.73 Personal history of transient ischemic attack (TIA), and cerebral infarction without residual deficits; Z87.440 Personal history of urinary (tract) infections; Z79.899 Other long term (current) drug therapy
CPT/HCPCS: 36415; 71045; 83880; 84484; 93005; 93970; 99284

== ENCOUNTER 2022-03-30 11:36 | Emergency (ER) | payer MEDICARE, MEDICAID ==
[~2022-03-30] VITALS: Ht 172.7 cm; Wt 91.0 kg
[~2022-03-30 11:36] MED LIST changes: -ACET-2178 PO; +TOPUD PO
[2022-03-30 12:43] LABS: BASOPHILS % 0.4 % (0.0-2.0); EOSINOPHILS % 3.3 % (0.0-5.0); HEMATOCRIT. 40.6 % (42.0-52.0); HEMOGLOBIN. 13.5 g/dL (14.0-18.0); LYMPHOCYTES % 21.3 % (20.0-50.0); MEAN CORPUSCULAR HEMOGLOBIN 34.7 pg (28.0-32.0); MEAN CORPUSCULAR VOLUME 104.1 fL (80.0-94.0); MEAN PLATELET VOLUME 8.5 fl (7.4-10.4); MONOCYTES % 9.8 % (2.0-8.0); NEUTROPHILS % 65.2 % (40.0-76.0); PLATELET 183 x1000/uL (130-400); RED CELL DISTRIBUTION WIDTH 14.9 % (11.6-14.6)
[2022-03-30 12:46] LABS: CHLORIDE 104 mEq/L (98-107)
[2022-03-30] MEDS ORDERED: CEPH500C2 MT (14:44)
[2022-03-30 16:01] VITALS: BP 131/75
== END 2022-03-30 16:02 | disposition home or self-care (01) ==
LOC: ER 11:36
DX: S91.301A Unspecified open wound, right foot, initial encounter (principal); I82.5Z1 Chronic embolism and thrombosis of unspecified deep veins of right distal lower extremity; I11.9 Hypertensive heart disease without heart failure; E11.9 Type 2 diabetes mellitus without complications; J44.9 Chronic obstructive pulmonary disease, unspecified; X58.XXXA Exposure to other specified factors, initial encounter; Y93.9 Activity, unspecified; Y92.9 Unspecified place or not applicable; Z79.01 Long term (current) use of anticoagulants; Z86.73 Personal history of transient ischemic attack (TIA), and cerebral infarction without residual deficits
CPT/HCPCS: 36415; 80053; 85025; 99283

== ENCOUNTER 2023-03-02 18:57 | Emergency (ER) | payer MEDICARE, MEDICAID ==
[~2023-03-02] VITALS: Ht 170.2 cm; Wt 80.0 kg
[~2023-03-02 18:57] MED LIST changes: +CEPH500C2 MT
[2023-03-02 18:59] VITALS: O2SAT 94
[2023-03-02] MEDS ORDERED: CEFTRIAXONE 1GM PREMIX 50 ML IV ONE (20:15)
[2023-03-02 20:18] LABS: BASOPHILS % 0.5 % (0.0-2.0); DIFFERENTIAL COMMENT 0; EOSINOPHILS % 4.7 % (0.0-5.0); HEMATOCRIT. 41.1 % (42.0-52.0); HEMOGLOBIN. 13.9 g/dL (14.0-18.0); LYMPHOCYTES % 20.3 % (20.0-50.0); MEAN CORPUSCULAR HEMOGLOBIN 34.6 pg (28.0-32.0); MEAN CORPUSCULAR HGB CONC 33.8 g/dL (31.0-37.0); MEAN CORPUSCULAR VOLUME 102.3 fL (80.0-94.0); MEAN PLATELET VOLUME 8.1 fl (7.4-10.4); MONOCYTES % 8.7 % (2.0-8.0); NEUTROPHILS % 65.8 % (40.0-76.0); PLATELET 181 x1000/uL (130-400); RED BLOOD CELL COUNT 4.01 mill/uL (4.7-6.1); RED CELL DISTRIBUTION WIDTH 14.4 % (11.6-14.6)
[2023-03-02 20:26] LABS: CHLORIDE 108 mEq/L (98-107); INDEX HEMOLYSI 4 (1-3); INDEX ICTERIC 1 (1-4); INDEX LIPEMIC 1 (1-3); SODIUM 140 mEq/L (136-145)
[2023-03-02 20:28] LABS: PROTHROMBIN TIME 10.9 sec (9.6-11.0)
[2023-03-02 20:37] LABS: ALANINE AMINOTRANSFERASE 31 IU/L (13-61); ALBUMIN 3.5 g/dL (3.4-5.0); ASPARTATE AMINOTRANSFERASE 31 IU/L (15-37); BILIRUBIN TOTAL 0.9 mg/dL (0.1-1.0); CALCIUM 8.4 mg/dL (8.5-10.1); CARBON DIOXIDE 28 mEq/L (21-32); CREATININE 1.1 mg/dL (0.6-1.3); GLUCOSE 95 mg/dL (70-105); NT PRO B-TYPE NATRIURETIC PEP 96 pg/mL (5-125); TROPONIN I HIGH SENSITIVITY 7 ng/L (<78); UREA NITROGEN BLOOD 17 mg/dL (7-21)
[2023-03-02 21:46] LABS: ERYTHROCYTE SEDIMENTATION RATE 47 mm/hr (0-30)
[2023-03-02] MEDS ORDERED: CEPH500C2 MT (22:19)
[2023-03-03 01:02] VITALS: BP 141/81; PULSE 67; RESP 18; TEMP 97.6
== END 2023-03-03 01:10 | disposition home or self-care (01) ==
LOC: ER 18:57
DX: I89.0 Lymphedema, not elsewhere classified (principal); L03.115 Cellulitis of right lower limb; J44.9 Chronic obstructive pulmonary disease, unspecified; E11.9 Type 2 diabetes mellitus without complications; I10 Essential (primary) hypertension; Z86.73 Personal history of transient ischemic attack (TIA), and cerebral infarction without residual deficits; Z87.440 Personal history of urinary (tract) infections
CPT/HCPCS: 99285; 93970; 96365; 71045; 80053; 83880; 85025; 85610; 85651; 84484; 36415; 73610; 93005; J0696

== ENCOUNTER 2023-03-22 16:30 | Inpatient (IN) | payer MEDICARE, MEDICAID ==
[~2023-03-22] VITALS: Ht 177.8 cm; Wt 90.7 kg
[2023-03-22] MEDS ORDERED: DIPHENHYDRAMINE 50MG/ML VIAL IV PRN (19:15)
[2023-03-22] MEDS ORDERED: IPRATROPIUM/ALBUTEROL 0.5-3(2.5)MG/3ML NEB HHN PRN (19:15)
[2023-03-22] MEDS ORDERED: DOCUSATE SODIUM 100MG CAPSULE PO PRN (19:15)
[2023-03-22] MEDS ORDERED: HYDROCODONE/ACETAMINOPHEN 5/325MG TABLET PO PRN (19:15)
[2023-03-22] MEDS ORDERED: PIPERACILLIN/TAZOBACTAM 3.375 G in DEXTROSE 5% WATER 50 ML IV SCH (19:15)
[2023-03-22] MEDS ORDERED: GUAIFENESIN 200MG/10ML SUGAR FREE UDC PO PRN (19:15)
[2023-03-22] MEDS ORDERED: CLONIDINE 0.1MG TABLET PO PRN (19:15)
[2023-03-22] MEDS ORDERED: ONDANSETRON HCL 4MG/2ML INJ IV PRN (19:15)
[2023-03-22] MEDS ORDERED: TRAMADOL 50MG TABLET PO PRN (19:15)
[2023-03-22] MEDS ORDERED: ACETAMINOPHEN 325MG TABLET PO PRN (19:15)
[2023-03-22 20:00] VITALS: BP 143/71; PULSE 61; RESP 19; TEMP 97.3
[2023-03-22 20:44] VITALS: BP 148/71; PULSE 61; RESP 18; TEMP 97.3
[2023-03-22] MEDS: SODIUM CHLORIDE 0.45% 1,000 ML IV SCH (21:00)
[2023-03-22] MEDS ORDERED: NALOXONE HCL 0.4MG/ML VIAL IV PRN (21:15)
[2023-03-22] MEDS ORDERED: VANCOMYCIN 1,750 MG in DEXT 5% WATER 500 ML IV SCH (22:00)
[2023-03-23] VITALS: BP 133/77; PULSE 71; RESP 18; TEMP 98.2
[2023-03-23] MEDS: PIPERACILLIN/TAZOBACTAM 3.375G in DEXT 5% WATER 50ML IV SCH ×4 (01:30→22:00)
[2023-03-23 03:10] LABS: CHLORIDE 108 mEq/L (98-107); INDEX HEMOLYSI 1 (1-3); INDEX ICTERIC 1 (1-4); INDEX LIPEMIC 1 (1-3); POTASSIUM 3.2 mEq/L (3.5-5.1); SODIUM 141 mEq/L (136-145)
[2023-03-23 03:11] LABS: CALCIUM 8.2 mg/dL (8.5-10.1)
[2023-03-23 03:14] LABS: CARBON DIOXIDE 26 mEq/L (21-32); GLUCOSE 159 mg/dL (70-105); UREA NITROGEN BLOOD 21 mg/dL (7-21)
[2023-03-23 04:00] VITALS: BP 150/81; PULSE 71; RESP 18; TEMP 99.6
[2023-03-23 07:46] LABS: BASOPHILS % 0.8 % (0.0-2.0); DIFFERENTIAL COMMENT 0; EOSINOPHILS % 4.3 % (0.0-5.0); HEMATOCRIT. 40.1 % (42.0-52.0); LYMPHOCYTES % 14.6 % (20.0-50.0); MEAN CORPUSCULAR HEMOGLOBIN 35.6 pg (28.0-32.0); MEAN CORPUSCULAR HGB CONC 34.9 g/dL (31.0-37.0); MEAN CORPUSCULAR VOLUME 101.8 fL (80.0-94.0); MEAN PLATELET VOLUME 8.1 fl (7.4-10.4); MONOCYTES % 12.3 % (2.0-8.0); PLATELET 173 x1000/uL (130-400); RED BLOOD CELL COUNT 3.94 mill/uL (4.7-6.1); RED CELL DISTRIBUTION WIDTH 14.3 % (11.6-14.6); WHITE BLOOD COUNT 6.1 x1000/uL (4.5-11.0)
[2023-03-23 08:00] VITALS: BP 138/71; PULSE 64; RESP 20; TEMP 97.7
[2023-03-23 08:44] LABS: CHLORIDE 109 mEq/L (98-107); INDEX HEMOLYSI 2 (1-3); INDEX ICTERIC 1 (1-4); INDEX LIPEMIC 1 (1-3); POTASSIUM 3.4 mEq/L (3.5-5.1); SODIUM 139 mEq/L (136-145)
[2023-03-23] MEDS: AMLODIPINE 10MG TABLET PO SCH (08:50)
[2023-03-23 08:56] LABS: ALANINE AMINOTRANSFERASE 21 IU/L (13-61); ALBUMIN 3.1 g/dL (3.4-5.0); ASPARTATE AMINOTRANSFERASE 16 IU/L (15-37); CALCIUM 8.1 mg/dL (8.5-10.1); CARBON DIOXIDE 25 mEq/L (21-32); CHOLESTEROL 136 mg/dL (<200); GLUCOSE 93 mg/dL (70-105); HDL CHOLESTEROL 36 mg/dL (40-59); LDL CHOLESTEROL 100 mg/dL (5-100); PROTEIN TOTAL 7.4 g/dL (6.0-8.3); TRIGLYCERIDE 111 mg/dL (0-150); UREA NITROGEN BLOOD 19 mg/dL (7-21)
[2023-03-23] MEDS: ENOXAPARIN 40MG/0.4ML SYR SUBCUT SCH (09:00)
[2023-03-23 12:00] VITALS: BP 121/69; PULSE 64; RESP 18; TEMP 97.7
[2023-03-23 16:00] VITALS: BP 123/70; PULSE 65; RESP 19; TEMP 97.9
[2023-03-23] MEDS ORDERED: VANCOMYCIN 1G PREMIX 200 ML IV SCH (18:00)
[2023-03-23 20:00] VITALS: BP 121/64; PULSE 68; RESP 19; TEMP 98.1
[2023-03-24] VITALS: BP 128/72; PULSE 64; RESP 18; TEMP 98.1
[2023-03-24 04:00] VITALS: BP 184/70; PULSE 61; RESP 15; TEMP 97.5
[2023-03-24] MEDS: SODIUM CHLORIDE 0.45% 1,000 ML IV SCH ×2 (05:18→23:38)
[2023-03-24] MEDS: PIPERACILLIN/TAZOBACTAM 3.375G in DEXT 5% WATER 50ML IV SCH ×3 (05:18→21:32)
[2023-03-24 08:00] VITALS: BP 137/56; PULSE 62; RESP 16; TEMP 97.4
[2023-03-24] MEDS: AMLODIPINE 10MG TABLET PO SCH (09:38)
[2023-03-24] MEDS: ENOXAPARIN 40MG/0.4ML SYR SUBCUT SCH (09:41)
[2023-03-24 12:00] VITALS: BP 142/75; PULSE 69; RESP 18; TEMP 97.8
[2023-03-24] MEDS: VANCOMYCIN 1G PREMIX 200 ML IV SCH (14:09)
[2023-03-24 16:00] VITALS: BP 119/62; PULSE 62; RESP 18; TEMP 98.3
[2023-03-24] MEDS: POTASSIUM CHLORIDE 20MEQ TABLET SR PO SCH (16:26)
[2023-03-24 20:00] VITALS: BP 133/78; PULSE 73; RESP 18; TEMP 98.4
[2023-03-25] VITALS: BP 146/65; PULSE 59; RESP 18; TEMP 98.1
[2023-03-25 04:00] VITALS: BP 129/59; PULSE 61; RESP 18; TEMP 97.9
[2023-03-25 04:23] LABS: BASOPHILS % 0.3 % (0.0-2.0); DIFFERENTIAL COMMENT 0; EOSINOPHILS % 5.6 % (0.0-5.0); HEMATOCRIT. 36.4 % (42.0-52.0); HEMOGLOBIN. 12.5 g/dL (14.0-18.0); LYMPHOCYTES % 20.6 % (20.0-50.0); MEAN CORPUSCULAR HEMOGLOBIN 34.8 pg (28.0-32.0); MEAN CORPUSCULAR HGB CONC 34.4 g/dL (31.0-37.0); MEAN CORPUSCULAR VOLUME 101.1 fL (80.0-94.0); MONOCYTES % 10.2 % (2.0-8.0); NEUTROPHILS % 63.3 % (40.0-76.0); PLATELET 162 x1000/uL (130-400); RED CELL DISTRIBUTION WIDTH 14.3 % (11.6-14.6); WHITE BLOOD COUNT 5.3 x1000/uL (4.5-11.0)
[2023-03-25 04:31] LABS: CHLORIDE 110 mEq/L (98-107); INDEX HEMOLYSI 1 (1-3); INDEX ICTERIC 1 (1-4); INDEX LIPEMIC 1 (1-3); POTASSIUM 3.7 mEq/L (3.5-5.1); SODIUM 139 mEq/L (136-145)
[2023-03-25 04:41] LABS: ALANINE AMINOTRANSFERASE 22 IU/L (13-61); ASPARTATE AMINOTRANSFERASE 17 IU/L (15-37); CARBON DIOXIDE 24 mEq/L (21-32); CREATININE 1.2 mg/dL (0.6-1.3); GLUCOSE 99 mg/dL (70-105); PROTEIN TOTAL 6.8 g/dL (6.0-8.3); UREA NITROGEN BLOOD 20 mg/dL (7-21); VANCOMYCIN TROUGH 11.7 ug/mL (5.0-10.0)
[2023-03-25] MEDS: VANCOMYCIN 1G PREMIX 200 ML IV SCH (06:38)
[2023-03-25 08:00] VITALS: BP 131/61; PULSE 57; RESP 18; TEMP 98.6
[2023-03-25] MEDS: AMLODIPINE 10MG TABLET PO SCH (09:32)
[2023-03-25] MEDS: ENOXAPARIN 40MG/0.4ML SYR SUBCUT SCH (09:32)
[2023-03-25] MEDS: POTASSIUM CHLORIDE 20MEQ TABLET SR PO SCH (09:33)
[2023-03-25 12:00] VITALS: BP 132/61; PULSE 58; RESP 18; TEMP 98.6
[2023-03-25] MEDS ORDERED: CEPHALEXIN 250MG CAPSULE PO SCH (12:00)
[2023-03-25 16:00] VITALS: BP 131/66; PULSE 77; RESP 18; TEMP 98.1
[2023-03-25] MEDS ORDERED: ATORVASTATIN CALCIUM 20MG TABLET PO SCH (21:00)
== END 2023-03-25 18:25 | DRG 603 ==
LOC: 6EST 17:47
PROVIDERS: ADMIT Hospitalist; ATTEND Hospitalist
DX: L03.116 Cellulitis of left lower limb (principal); I10 Essential (primary) hypertension; E11.42 Type 2 diabetes mellitus with diabetic polyneuropathy; E11.51 Type 2 diabetes mellitus with diabetic peripheral angiopathy without gangrene; J44.9 Chronic obstructive pulmonary disease, unspecified; L03.115 Cellulitis of right lower limb; Z86.718 Personal history of other venous thrombosis and embolism; Z79.4 Long term (current) use of insulin
CPT/HCPCS: 36415; 80048; 80053; 80061; 80202; 82962; 83735; 85025; 87070; 87426; 93970; J1650; J2543; J3370; J7060

== ENCOUNTER 2023-05-29 11:26 | Inpatient (IN) | payer MEDICARE, MEDICAID ==
[~2023-05-29] VITALS: Ht 177.8 cm; Wt 105.0 kg
[2023-05-29] MEDS ORDERED: KETOROLAC 30MG/ML VIAL IV ONE (12:15)
[2023-05-29] MEDS ORDERED: CEFTRIAXONE 2GM/50ML (ADDEASE) 50 ML IV ONE (12:15)
[2023-05-29 12:28] LABS: BASOPHILS % 0.5 % (0.0-2.0); DIFFERENTIAL COMMENT 0; HEMATOCRIT. 38.3 % (42.0-52.0); LYMPHOCYTES % 15.7 % (20.0-50.0); MEAN CORPUSCULAR HEMOGLOBIN 34.7 pg (28.0-32.0); MEAN CORPUSCULAR HGB CONC 33.9 g/dL (31.0-37.0); MEAN CORPUSCULAR VOLUME 102.3 fL (80.0-94.0); MEAN PLATELET VOLUME 8.2 fl (7.4-10.4); MONOCYTES % 9.7 % (2.0-8.0); NEUTROPHILS % 70.1 % (40.0-76.0); PLATELET 210 x1000/uL (130-400); RED BLOOD CELL COUNT 3.74 mill/uL (4.7-6.1); WHITE BLOOD COUNT 5.8 x1000/uL (4.5-11.0)
[2023-05-29 12:35] LABS: CHLORIDE 106 mEq/L (98-107); INDEX HEMOLYSI 1 (1-3); INDEX ICTERIC 1 (1-4); INDEX LIPEMIC 1 (1-3); POTASSIUM 3.7 mEq/L (3.5-5.1); SODIUM 141 mEq/L (136-145)
[2023-05-29 12:39] LABS: INR 1.1; PARTIAL THROMBOPLASTIN TIME 37.6 sec (23.4-31.0); PROTHROMBIN TIME 11.6 sec (9.6-11.0)
[2023-05-29 12:43] LABS: ALANINE AMINOTRANSFERASE 30 IU/L (13-61); ALBUMIN 3.3 g/dL (3.4-5.0); ASPARTATE AMINOTRANSFERASE 23 IU/L (15-37); BILIRUBIN TOTAL 1.4 mg/dL (0.1-1.0); CALCIUM 8.3 mg/dL (8.5-10.1); CARBON DIOXIDE 31 mEq/L (21-32); CREATININE 1.2 mg/dL (0.6-1.3); GLUCOSE 112 mg/dL (70-105); PROTEIN TOTAL 7.8 g/dL (6.0-8.3); UREA NITROGEN BLOOD 15 mg/dL (7-21)
[2023-05-29] MEDS ORDERED: VANCOMYCIN 1.5GM/250ML IVPB 250 ML IV NR ×2 (13:15→16:00)
[2023-05-29] MEDS ORDERED: ACETAMINOPHEN 325MG TABLET PO PRN (14:00)
[2023-05-29] MEDS ORDERED: ONDANSETRON HCL 4MG/2ML INJ IV PRN (14:00)
[2023-05-29] MEDS ORDERED: DOCUSATE SODIUM 100MG CAPSULE PO PRN (14:00)
[2023-05-29] MEDS ORDERED: CLONIDINE 0.1MG TABLET PO PRN (14:00)
[2023-05-29] MEDS ORDERED: MAGNESIUM/ALUMINUM HYDROXIDE/SIMETHICONE 30ML UDC PO PRN (14:00)
[2023-05-29] MEDS ORDERED: GUAIFENESIN 200MG/10ML SUGAR FREE UDC PO PRN (14:00)
[2023-05-29] MEDS ORDERED: IPRATROPIUM/ALBUTEROL 0.5-3(2.5)MG/3ML NEB HHN PRN (14:00)
[2023-05-29] MEDS ORDERED: SODIUM CHLORIDE 0.45% 1,000 ML IV SCH (14:30)
[2023-05-29] MEDS ORDERED: DEXTROSE 50% WATER 50ML SYRINGE IV PRN (14:45)
[2023-05-29] MEDS: AMLODIPINE 10MG TABLET PO SCH (15:51)
[2023-05-29] MEDS: ASPIRIN 81MG EC TABLET PO SCH (15:51)
[2023-05-29] MEDS: ENOXAPARIN 100MG/ML SYR SUBCUT SCH (15:51)
[2023-05-29 15:56] LABS: VITAMIN B12 SERUM 348 pg/mL (211-911)
[2023-05-29] MEDS ORDERED: VANCOMYCIN 1500MG in DEXTROSE 5% WATER 250ML IV NR (16:00)
[2023-05-29] MEDS: FAMOTIDINE 20MG TABLET PO SCH (21:00)
[2023-05-30] VITALS: BP 126/65; PULSE 63; RESP 18; TEMP 98.2
[2023-05-30] MEDS: ENOXAPARIN 100MG/ML SYR SUBCUT SCH ×2 (03:37→14:41)
[2023-05-30] MEDS ORDERED: VANCOMYCIN 1G PREMIX 200 ML IV SCH ×2 (06:00→16:30)
[2023-05-30 06:40] LABS: BASOPHILS % 0.3 % (0.0-2.0); DIFFERENTIAL COMMENT 0; HEMATOCRIT. 37.4 % (42.0-52.0); HEMOGLOBIN. 12.7 g/dL (14.0-18.0); LYMPHOCYTES % 14.2 % (20.0-50.0); MEAN CORPUSCULAR HEMOGLOBIN 34.2 pg (28.0-32.0); MEAN CORPUSCULAR HGB CONC 33.9 g/dL (31.0-37.0); MEAN CORPUSCULAR VOLUME 100.7 fL (80.0-94.0); MEAN PLATELET VOLUME 8.4 fl (7.4-10.4); NEUTROPHILS % 70.5 % (40.0-76.0); PLATELET 197 x1000/uL (130-400); RED BLOOD CELL COUNT 3.71 mill/uL (4.7-6.1); RED CELL DISTRIBUTION WIDTH 14.5 % (11.6-14.6); WHITE BLOOD COUNT 5.5 x1000/uL (4.5-11.0)
[2023-05-30 07:15] LABS: CHLORIDE 110 mEq/L (98-107); INDEX HEMOLYSI 1 (1-3); INDEX ICTERIC 1 (1-4); INDEX LIPEMIC 1 (1-3); SODIUM 142 mEq/L (136-145)
[2023-05-30 07:29] LABS: ALANINE AMINOTRANSFERASE 27 IU/L (13-61); ALBUMIN 2.8 g/dL (3.4-5.0); ASPARTATE AMINOTRANSFERASE 22 IU/L (15-37); BILIRUBIN TOTAL 1.5 mg/dL (0.1-1.0); CARBON DIOXIDE 27 mEq/L (21-32); CHOLESTEROL 108 mg/dL (<200); CREATININE 1.2 mg/dL (0.6-1.3); GLUCOSE 97 mg/dL (70-105); HDL CHOLESTEROL 36 mg/dL (40-59); LDL CHOLESTEROL 70 mg/dL (5-100); PROTEIN TOTAL 6.9 g/dL (6.0-8.3); T4 FREE 1.64 ng/dL (0.76-1.46); TRIGLYCERIDE 64 mg/dL (0-150); UREA NITROGEN BLOOD 15 mg/dL (7-21)
[2023-05-30 08:00] VITALS: BP 130/64; PULSE 64; RESP 20; TEMP 97.5
[2023-05-30] MEDS: ASPIRIN 81MG EC TABLET PO SCH (08:45)
[2023-05-30] MEDS: AMLODIPINE 10MG TABLET PO SCH (08:45)
[2023-05-30 12:00] VITALS: BP 140/61; PULSE 76; RESP 18; TEMP 97.5
[2023-05-30 16:00] VITALS: BP 148/60; PULSE 73; RESP 18; TEMP 97.6
[2023-05-30 20:00] VITALS: BP 149/79; PULSE 70; RESP 18; TEMP 98.9
[2023-05-30] MEDS: VANCOMYCIN 1G PREMIX 200 ML IV SCH (20:06)
[2023-05-30] MEDS: FAMOTIDINE 20MG TABLET PO SCH (20:21)
[2023-05-30] MEDS: PIPERACILLIN/TAZOBACTAM 3.375 G in DEXTROSE 5% WATER 50 ML IV SCH (21:32)
[2023-05-31] VITALS: BP 144/73; PULSE 69; RESP 16; TEMP 97.4
[2023-05-31] MEDS: ENOXAPARIN 100MG/ML SYR SUBCUT SCH ×2 (03:29→14:35)
[2023-05-31 04:00] VITALS: BP 110/68; PULSE 64; RESP 18; TEMP 98.1
[2023-05-31] MEDS: PIPERACILLIN/TAZOBACTAM 3.375 G in DEXTROSE 5% WATER 50 ML IV SCH ×3 (05:28→21:59)
[2023-05-31 08:00] VITALS: BP 140/71; PULSE 62; RESP 18; TEMP 97.5
[2023-05-31] MEDS: ASPIRIN 81MG EC TABLET PO SCH (09:59)
[2023-05-31] MEDS: FUROSEMIDE 40MG/4ML VIAL IVP SCH (09:59)
[2023-05-31] MEDS: AMLODIPINE 10MG TABLET PO SCH (09:59)
[2023-05-31] MEDS: VANCOMYCIN 1G PREMIX 200 ML IV SCH (10:00)
[2023-05-31 10:55] LABS: HEMATOCRIT 37.6 % (42.0-52.0); HEMOGLOBIN 12.6 g/dL (14.0-18.0); MEAN CORPUSCULAR HEMOGLOBIN 34.4 pg (28.0-32.0); MEAN CORPUSCULAR HGB CONC 33.6 g/dL (31.0-37.0); MEAN CORPUSCULAR VOLUME 102.4 fL (80.0-94.0); PLATELET 191 x1000/uL (130-400); RED BLOOD CELL COUNT 3.67 mill/uL (4.7-6.1); RED CELL DISTRIBUTION WIDTH 14.8 % (11.6-14.6); WHITE BLOOD COUNT 4.6 x1000/uL (4.5-11.0)
[2023-05-31 12:07] VITALS: BP 144/63; PULSE 63; RESP 18; TEMP 97.5
[2023-05-31 12:50] LABS: CHLORIDE 109 mEq/L (98-107); INDEX HEMOLYSI 1 (1-3); INDEX ICTERIC 1 (1-4); INDEX LIPEMIC 1 (1-3); POTASSIUM 3.6 mEq/L (3.5-5.1); SODIUM 142 mEq/L (136-145)
[2023-05-31 13:59] LABS: ALANINE AMINOTRANSFERASE 25 IU/L (13-61); ALBUMIN 2.9 g/dL (3.4-5.0); ASPARTATE AMINOTRANSFERASE 24 IU/L (15-37); BILIRUBIN TOTAL 1.4 mg/dL (0.1-1.0); CALCIUM 7.9 mg/dL (8.5-10.1); CREATININE 1.4 mg/dL (0.6-1.3); GLUCOSE 142 mg/dL (70-105); PROTEIN TOTAL 7.4 g/dL (6.0-8.3); UREA NITROGEN BLOOD 20 mg/dL (7-21)
[2023-05-31 15:52] LABS: CARBON DIOXIDE 23 mEq/L (21-32)
[2023-05-31 16:00] VITALS: BP 145/63; PULSE 65; RESP 18; TEMP 97.8
[2023-05-31 20:00] VITALS: BP 135/68; PULSE 72; RESP 16; TEMP 98.8
[2023-05-31] MEDS: FAMOTIDINE 20MG TABLET PO SCH (20:20)
[2023-06-01] VITALS: BP 129/57; PULSE 76; RESP 18; TEMP 98.9
[2023-06-01] MEDS: ENOXAPARIN 100MG/ML SYR SUBCUT SCH ×2 (02:59→14:00)
[2023-06-01 04:00] VITALS: BP 122/58; PULSE 68; RESP 18; TEMP 98.1
[2023-06-01] MEDS: PIPERACILLIN/TAZOBACTAM 3.375 G in DEXTROSE 5% WATER 50 ML IV SCH ×2 (05:42→13:59)
[2023-06-01 08:00] VITALS: BP 120/60; PULSE 70; RESP 18; TEMP 98.6
[2023-06-01] MEDS ORDERED: CEPH500C2 MT (08:21)
[2023-06-01] MEDS ORDERED: ASPI-1406 PO (08:21)
[2023-06-01] MEDS ORDERED: FURO20TA4 PO (08:22)
[2023-06-01] MEDS: ASPIRIN 81MG EC TABLET PO SCH (09:08)
[2023-06-01] MEDS: AMLODIPINE 10MG TABLET PO SCH (09:08)
[2023-06-01] MEDS: FUROSEMIDE 40MG/4ML VIAL IVP SCH (09:08)
[2023-06-01] MEDS: VANCOMYCIN 1G PREMIX 200 ML IV SCH (09:09)
[2023-06-01 11:51] LABS: POTASSIUM 3.3 mEq/L (3.5-5.1)
[2023-06-01 12:00] VITALS: BP 113/67; PULSE 68; RESP 17; TEMP 96.9
[2023-06-01] MEDS ORDERED: SULF1TAB47 MT (12:41)
[2023-06-01 12:55] LABS: CALCIUM 7.8 mg/dL (8.5-10.1); CREATININE 1.3 mg/dL (0.6-1.3)
[2023-06-01 14:47] VITALS: BP 112/66; PULSE 69; TEMP 97; O2SAT 98
[2023-06-01 16:00] VITALS: BP 123/65; PULSE 72; RESP 18; TEMP 98.7
[2023-06-02] MEDS ORDERED: VANCOMYCIN 1G PREMIX 200 ML IV SCH (09:00)
== END 2023-06-01 16:38 | DRG 603 ==
LOC: ER 11:36 → 4WST 14:32 → 6WST 05-31 08:37
PROVIDERS: ADMIT Hospitalist; ATTEND Hospitalist
DX: L03.115 Cellulitis of right lower limb (principal); E44.0 Moderate protein-calorie malnutrition; D53.9 Nutritional anemia, unspecified; D50.9 Iron deficiency anemia, unspecified; E11.65 Type 2 diabetes mellitus with hyperglycemia; I11.0 Hypertensive heart disease with heart failure; I50.9 Heart failure, unspecified; E78.5 Hyperlipidemia, unspecified; E80.6 Other disorders of bilirubin metabolism; J44.9 Chronic obstructive pulmonary disease, unspecified; Z68.33 Body mass index [BMI] 33.0-33.9, adult; Z79.01 Long term (current) use of anticoagulants; Z79.899 Other long term (current) drug therapy; Z86.718 Personal history of other venous thrombosis and embolism; Z86.73 Personal history of transient ischemic attack (TIA), and cerebral infarction without residual deficits
CPT/HCPCS: 36415; 73610; 80048; 80053; 80061; 80202; 82607; 82746; 83036; 83605; 84439; 84443; 85025; 85027; 87070; 87077; 87186; 93923; 93970; 96365; 96375; 97162; 99291; J0696; J1650; J1885; J1940; J2543; J3370; J7060